=== PATIENT | male | born 1970 | race American Indian/Alaskan Native ===

== ENCOUNTER 2017-01-11 17:10 | Emergency (ER) | payer OTHER ==
[2017-01-11 19:02] LABS: Hematocrit 40.4 % (35.5-45.6); Hemoglobin 13.7 gm/dl (11.8-15.2); Mean Corpuscular HGB Conc 34 % (32-34); Mean Corpuscular Hemoglobin 28 pg (28-32); Mean Corpuscular Volume 84 fl (84-94); Platelet Count 220 K/mm3 (140-440); Red Blood Count 4.81 M/mm3 (3.65-5.03); Red Cell Distribution Width 12.9 % (13.2-15.2); White Blood Count 3.9 K/mm3 (4.5-11.0)
[2017-01-11 19:03] LABS: Anion Gap 18 mmol/L; B-Hydroxybutyrate 5.8 mg/dL (0.2-2.8); BUN/Creatinine Ratio 18.88; Blood Urea Nitrogen 17 mg/dL (9-20); Calcium 9.3 mg/dL (8.4-10.2); Carbon Dioxide 28 mmol/L (22-30); Chloride 91.2 mmol/L (98-107); Glucose 402 mg/dL (75-100); Potassium 4.5 mmol/L (3.6-5.0); Sodium 133 mmol/L (137-145)
[2017-01-11] MEDS ORDERED: NACL 0.9% 1000 ML 1,000 ML IV ONE (19:40)
[2017-01-11 20:12] LABS: Bilirubin,Urine NEG (Negative); Blood,Urine SM (Negative); Ketones,Urine NEG (Negative); Leukocyte Esterase,Urine NEG (Negative); Nitrite,Urine NEG (Negative); Protein,Urine <15 mg/dL mg/dL (Negative); Urobilinogen,Urine < 2.0 mg/dL (<2.0)
--- NOTE | 2017-01-11 20:36 | Emergency Department Report ---
HPI - General Chief Complaint: Hyperglycemia Time Seen by Provider: 01/11/17 19:40 - HPI HPI: This is a 46-year-old Afro-[place] male who presents to the emergency department with complaint of uncontrolled blood sugar. Patient says he is taking his Humalog and Lantus as prescribed. He is on a sliding scale Humalog and 35 units of Lantus at night. He has been having some increased thirst and increased urination. He denies any chest pain, abdominal pain, nausea, vomiting , headache or blurred vision. He also has a history of hypertension and arthritis. He does not currently have a primary care doctor. No recent travel or sick contacts at home. He denies missing any doses of his medications. ED Past Medical Hx - Past Medical History Previous Medical History?: Yes Hx Hypertension: Yes Hx Diabetes: Yes Hx Arthritis: Yes - Surgical History Past Surgical History?: No - Social History Smoking Status: Current Every Day Smoker Substance Use Type: None ED Review of Systems ROS: Stated complaint: HIGH BLOOD SUGAR Other details as noted in HPI Comment: All other systems reviewed and negative Constitutional: denies: chills, fever Eyes: denies: eye pain, eye discharge, vision change ENT: denies: ear pain, throat pain Respiratory: denies: cough, shortness of breath, wheezing Cardiovascular: denies: chest pain, palpitations Endocrine: increased thirst, increased urine Gastrointestinal: denies: abdominal pain, nausea, diarrhea Genitourinary: frequency. denies: urgency, dysuria Musculoskeletal: denies: back pain, joint swelling, arthralgia Skin: denies: rash, lesions Neurological: denies: headache, weakness, paresthesias Physical Exam - Physical Exam Vital Signs: Vital Signs 01/11/17 18:04 Temperature 98.6 F Pulse Rate 54 L Respiratory 18 Rate Blood Pressure 153/103 O2 Sat by Pulse 100 Oximetry Physical Exam: GENERAL: The patient is well-developed well-nourished. HEENT: Normocephalic. Atraumatic. Extraocular motions are intact. Patient has moist mucous membranes. Pupils equal reactive to light bilaterally. NECK: Supple. Trachea is midline. CHEST/LUNGS: Clear to auscultation. There is no respiratory distress noted. HEART/CARDIOVASCULAR: Regular. There is no tachycardia. There is no gallop rub or murmur. ABDOMEN: Abdomen is soft, nontender. Patient has normal bowel sounds. There is no abdominal distention. SKIN: There is no rash. There is no edema. There is no diaphoresis. NEURO: The patient is awake, alert, and oriented. The patient is cooperative. The patient has no focal neurologic deficits. The patient has normal speech. MUSCULOSKELETAL: There is no tenderness or deformity. There is no limitation range of motion. There is no evidence of acute injury. ED Course Vital Signs 01/11/17 18:04 Temperature 98.6 F Pulse Rate 54 L Respiratory 18 Rate Blood Pressure 153/103 O2 Sat by Pulse 100 Oximetry ED Medical Decision Making - Lab Data Result diagrams: 01/11/17 18:30 01/11/17 18:30 - Medical Decision Making 46-year-old insulin-dependent diabetic presents with elevated blood sugar. Blood sugar is 400. There is no acidosis and only 5 ketones in the urine. Patient does not appear to be in any distress. He was given 10 units of IV insulin and 1 L of IV fluid resuscitation and blood sugars come down to 210. There is no significant anion gap elevation. He does not appear to be in diabetic ketoacidosis or HHNK. He'll be discharged home with multiple referrals for primary care. He will continue to take his insulin, keep a blood sugar log and will return to the ER with any worsening of his symptoms or any acute distress. Patient will be given some amoxicillin as he is convinced that he has sinusitis and that is bacterial. - Differential Diagnosis DKA, HHNK, hyperglycemia Critical Care Time: No Critical care attestation.: If time is entered above; I have spent that time in minutes in the direct care of this critically ill patient, excluding procedure time. ED Disposition Clinical Impression: Hyperglycemia Hypertension Qualifiers: Hypertension type: essential hypertension Qualified Code(s): I10 - Essential ( primary) hypertension Disposition: DISCHARGED TO HOME OR SELFCARE Is pt being admited?: No Does the pt Need Aspirin: No Condition: Good Instructions: Hypertension (ED), Diabetic Hyperglycemia (ED) Additional Instructions: Please follow-up with a primary care doctor in the next few days. Continue using your insulin and keep a blood sugar log. Return to the emergency department with any uncontrolled blood sugar or any acute distress. Try to stay away from foods and drinks that are high in carbohydrates, starches and sugar. Referrals: PRIMARY CARE, [Primary Care Provider] - 3-5 Days DICRISTINA,JCARLOS, MD [Staff Physician] - 3-5 Days BEATRIS PAYNE MD [Staff Physician] - 3-5 Days [facility] [Outside] - 3-5 Days [facility] [Outside] - 3-5 Days [facility] [Outside] - 3-5 Days [facility] [Outside] - 3-5 Days Time of Disposition: 21:37
[2017-01-11 21:04] LABS: Anisocytosis Few; Basophils % (Manual) 0 % (0.0-1.8); Blastocytes % (Manual) 0 %; Diff Status Complete
[2017-01-11 22:18] VITALS: BP 146/92
== END 2017-01-11 21:45 | disposition home or self-care (01) ==
LOC: ED 17:10
DX: E11.65 Type 2 diabetes mellitus with hyperglycemia (principal); I10 Essential (primary) hypertension; E11.9 Type 2 diabetes mellitus without complications; F17.200 Nicotine dependence, unspecified, uncomplicated
CPT/HCPCS: 36415; 80048; 81001; 82010; 82805; 82962; 85007; 85025; 96361; 96374; 99284; J7030; J1815

== ENCOUNTER 2017-04-16 09:44 | Emergency (ER) | payer SELFPAY ==
[2017-04-16 10:46] LABS: Bilirubin,Urine NEG (Negative); Blood,Urine MOD (Negative); Ketones,Urine NEG (Negative); Leukocyte Esterase,Urine NEG (Negative); Mucus,Urine FEW /HPF; Nitrite,Urine NEG (Negative); Protein,Urine <15 mg/dL mg/dL (Negative); Urobilinogen,Urine < 2.0 mg/dL (<2.0); WBC,Urine < 1.0 /HPF (0.0-6.0)
[2017-04-16 11:01] LABS: Basophils % (Auto) 0.8 % (0.0-1.8); Hematocrit 42.4 % (35.5-45.6); Hemoglobin 14.3 gm/dl (11.8-15.2); Mean Corpuscular HGB Conc 34 % (32-34); Mean Corpuscular Hemoglobin 28 pg (28-32); Mean Corpuscular Volume 84 fl (84-94); Platelet Count 168 K/mm3 (140-440); Red Blood Count 5.05 M/mm3 (3.65-5.03); Red Cell Distribution Width 13.6 % (13.2-15.2); White Blood Count 5.4 K/mm3 (4.5-11.0)
[2017-04-16 11:22] LABS: Alanine Aminotransferase 16 units/L (7-56); Albumin 3.3 g/dL (3.9-5); Albumin/Globulin Ratio 1.3 %; Alkaline Phosphatase 100 units/L (35-129); Anion Gap 16 mmol/L; Blood Urea Nitrogen 10 mg/dL (9-20); Calcium 8.4 mg/dL (8.4-10.2); Carbon Dioxide 26 mmol/L (22-30); Chloride 95.7 mmol/L (98-107); Glucose 330 mg/dL (75-100); Lipase 36 units/L (13-60); Potassium 3.7 mmol/L (3.6-5.0); Sodium 134 mmol/L (137-145); Total Protein 5.9 g/dL (6.3-8.2)
[2017-04-16] MEDS ORDERED: NORCO 5/325 PO ONE (11:29)
[2017-04-16] MEDS ORDERED: ZOFRAN ODT PO ONE (11:30)
[2017-04-16] MEDS ORDERED: NACL 0.9% 1000 ML 1,000 ML IV ONE (11:45)
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
[2017-04-16 13:38] VITALS: BP 158/96
== END 2017-04-16 13:38 | disposition home or self-care (01) ==
LOC: ED 09:44
DX: R10.30 Lower abdominal pain, unspecified (principal); I10 Essential (primary) hypertension; E11.9 Type 2 diabetes mellitus without complications; F17.200 Nicotine dependence, unspecified, uncomplicated
CPT/HCPCS: 36415; 74176; 80053; 81001; 82550; 82962; 83690; 85025; 96360; 99284; J7030; Q0162

== ENCOUNTER 2017-06-08 11:41 | Emergency (ER) | payer SELFPAY ==
[2017-06-08 12:51] LABS: Basophils % (Auto) 1.1 % (0.0-1.8); Eosinophils % (Auto) 2.6 % (0.0-4.3); Hematocrit 41.1 % (35.5-45.6); Hemoglobin 13.5 gm/dl (11.8-15.2); Mean Corpuscular HGB Conc 33 % (32-34); Mean Corpuscular Hemoglobin 29 pg (28-32); Mean Corpuscular Volume 87 fl (84-94); Platelet Count 219 K/mm3 (140-440); Red Blood Count 4.73 M/mm3 (3.65-5.03); White Blood Count 3.4 K/mm3 (4.5-11.0)
[2017-06-08 12:56] LABS: Anion Gap 21 mmol/L; BUN/Creatinine Ratio 16.66; Blood Urea Nitrogen 15 mg/dL (9-20); Carbon Dioxide 25 mmol/L (22-30); Chloride 88.7 mmol/L (98-107); Potassium 4.5 mmol/L (3.6-5.0); Sodium 130 mmol/L (137-145)
[2017-06-08 12:57] LABS: Glucose 660 mg/dL (75-100)
[2017-06-08 13:52] VITALS: BP 126/91
[2017-06-08 13:59] LABS: Bilirubin,Urine NEG (Negative); Blood,Urine SM (Negative); Ketones,Urine TR mg/dL (Negative); Leukocyte Esterase,Urine NEG (Negative); Mucus,Urine FEW /HPF; Nitrite,Urine NEG (Negative); Protein,Urine <15 mg/dL mg/dL (Negative); Urobilinogen,Urine < 2.0 mg/dL (<2.0); WBC,Urine < 1.0 /HPF (0.0-6.0)
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
--- NOTE | 2017-06-08 15:57 | XRay Report ---
Right elbow 2 views: History: Slip and fall. Findings: No bony or articular abnormality. No fracture or dislocation. No joint effusion. Impression: Essentially negative elbow.
--- NOTE | 2017-06-08 15:58 | XRay Report ---
Right hip 2 views: History: Injury, pain. Findings: Mild arthritic changes superior lateral aspect of hip joint. No definite evidence of acute fracture or dislocation. Impression: Findings as described.
--- NOTE | 2017-06-08 15:59 | XRay Report ---
Right knee 2 views: History: Slip and fall. Severe pain. Findings: No bony or articular abnormality. No fracture or dislocation no joint effusion. Unfused tibial tuberosity epiphysis. Impression: No evidence of acute fracture.
--- NOTE | 2017-06-08 16:00 | XRay Report ---
Lumbar spine 3 views: History: Slipped and fall, severe pain. Findings: Normal height of vertebral bodies and intervertebral disc are normal articular surfaces. No fracture. No paravertebral mass. Impression: No evidence of acute fracture.
--- NOTE | 2017-06-08 16:00 | XRay Report ---
Right shoulder 3 views: History: Slipped and fall. Findings: Normal a.c. joint. Normal glenohumeral joint. No fracture or dislocation. Impression: No evidence of acute fracture.
[2017-06-08] MEDS ORDERED: NACL 0.9% 1000 ML 1,000 ML IV ONE (16:19)
[2017-06-08] MEDS ORDERED: NORCO 10/325 PO ONE (16:58)
[2017-06-08] MEDS ORDERED: ROXICODONE PO ONE (17:07)
== END 2017-06-08 17:23 | disposition home or self-care (01) ==
LOC: ED 11:41
DX: E11.65 Type 2 diabetes mellitus with hyperglycemia (principal); M25.561 Pain in right knee; M25.511 Pain in right shoulder; I10 Essential (primary) hypertension; M19.90 Unspecified osteoarthritis, unspecified site; F12.10 Cannabis abuse, uncomplicated; F17.210 Nicotine dependence, cigarettes, uncomplicated; Z79.4 Long term (current) use of insulin
CPT/HCPCS: 36415; 72100; 73030; 73070; 73502; 73560; 80048; 81001; 82805; 82962; 85025; 93005; 93010; 96361; 96374; 99285; J7030; J1815

== ENCOUNTER 2017-08-28 14:41 | Emergency (ER) | payer SELFPAY ==
--- NOTE | 2017-08-28 16:01 | Emergency Department Report ---
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 He also having left-sided chest pain that feels like needles and pin without any radiation without any similar incident. This is 8 out of 10. Patient is reporting blurred vision and dizziness also. He said he has a history of high blood pressure and his doctor at taking him off his blood pressure medication. He said he hasn't had anything to eat in a couple days and he takes Lantus which she took this morning. He also takes another kind of insulin. Blood sugar in triage is 354 and his blood pressure is 159/103 with heart rate of 107. He denies any nausea or vomiting. Denies any syncope episode. Denies any head injury. He denies any fever or chills. - ROS Review of Systems: All systems are negative unless stated in HPI above - Exam Vital Signs: Vital Signs 08/28/17 15:18 Temperature 98 F Pulse Rate 107 H Respiratory 18 Rate Blood Pressure 159/103 O2 Sat by Pulse 100 Oximetry Physical Exam: Gen.: This is a 46-year-old male well-nourished well-developed nontoxic in appearance. CV: Tachycardic 107, regular rhythm. Mini neurological exam: She is alert and oriented 3, GCS of 15. No facial drooping and speech is clear. Eyes: The lateral pupils equal and reactive to light, EOM intact bilaterally, bilateral sclera/conjunctiva without any injection. MSE screening note: Focused history and physical exam performed. Due to findings the following was ordered:[facility] ED Medical Decision Making - Medical Decision Making MDM: Patient screened by provider in triage area. Appropriate protocol initiated and patient to be seen in main ED by ED Disposition for MSE Condition: Stable
[2017-08-28 16:31] LABS: Basophils % (Auto) 0.7 % (0.0-1.8); Eosinophils % (Auto) 0.9 % (0.0-4.3); Hematocrit 45.6 % (35.5-45.6); Hemoglobin 15.1 gm/dl (11.8-15.2); Mean Corpuscular HGB Conc 33 % (32-34); Mean Corpuscular Hemoglobin 29 pg (28-32); Mean Corpuscular Volume 86 fl (84-94); Platelet Count 238 K/mm3 (140-440); Red Cell Distribution Width 13.6 % (13.2-15.2); White Blood Count 4.6 K/mm3 (4.5-11.0)
[2017-08-28 16:48] LABS: Anion Gap 18 mmol/L; BUN/Creatinine Ratio 18; Blood Urea Nitrogen 11 mg/dL (9-20); Calcium 9.4 mg/dL (8.4-10.2); Carbon Dioxide 27 mmol/L (22-30); Chloride 92.9 mmol/L (98-107); Glucose 387 mg/dL (75-100); Potassium 4.4 mmol/L (3.6-5.0); Sodium 133 mmol/L (137-145)
--- NOTE | 2017-08-28 17:48 | Cat Scan Report ---
FINAL REPORT EXAM: CT HEAD/BRAIN WO CON HISTORY: Headache, blurred vision TECHNIQUE: CT head without contrast PRIORS: None. FINDINGS: No acute intra-axial or extra-axial hemorrhage is identified. There is no evidence of midline shift or mass effect. The ventricles and sulci are within normal limits. Hernandez-white matter differentiation is intact. No acute parenchymal abnormalities seen. Bony calvarium is grossly intact. There is marked opacification within visualized portion the maxillary sinuses. There mucosal thickening within multiple ethmoid air cells and within the frontal sinus. IMPRESSION: No acute intracranial abnormality identified. Pansinusitis which may be acute on chronic.
[2017-08-28 23:03] VITALS: BP 154/103
== END 2017-08-29 08:44 | disposition left against medical advice (07) ==
LOC: ED 14:41
DX: R51 Headache (principal); E11.65 Type 2 diabetes mellitus with hyperglycemia; R07.9 Chest pain, unspecified; R42 Dizziness and giddiness; Z53.21 Procedure and treatment not carried out due to patient leaving prior to being seen by health care provider
CPT/HCPCS: 36415; 70450; 80048; 82805; 82962; 84484; 85025; 93005; 93010

== ENCOUNTER 2018-12-23 20:06 | Inpatient (IN) | payer MEDICARE ==
[2018-12-23 21:20] LABS: BUN/Creatinine Ratio 14; Blood Urea Nitrogen 11 mg/dL (9-20); Calcium 9.2 mg/dL (8.4-10.2); Hemolysis Index 5
[2018-12-23 21:29] LABS: Basophils % (Auto) 1.1 % (0.0-1.8); Eosinophils # (Auto) 0.1 K/mm3 (0.0-0.4); Eosinophils % (Auto) 2.9 % (0.0-4.3); Hemoglobin 12.1 gm/dl (11.8-15.2); Lymphocytes # (Auto) 1.8 K/mm3 (1.2-5.4); Lymphocytes % (Auto) 45.4 % (13.4-35.0); Mean Corpuscular HGB Conc 34 % (32-34); Mean Corpuscular Volume 87 fl (84-94); Monocytes # (Auto) 0.5 K/mm3 (0.0-0.8); Monocytes % (Auto) 12.4 % (0.0-7.3); Platelet Count 307 K/mm3 (140-440); Red Blood Count 4.14 M/mm3 (3.65-5.03); Red Cell Distribution Width 14.3 % (13.2-15.2)
[2018-12-23] MEDS ORDERED: NACL 0.9% 1000 ML 1,000 ML IV ONE (22:33)
[2018-12-23] MEDS ORDERED: TORADOL IV ONE (22:33)
[2018-12-23] MEDS ORDERED: ZOFRAN IV ONE (22:33)
[2018-12-23] MEDS ORDERED: HumuLIN R IV ONE (22:33)
[2018-12-23 23:17] LABS: Bilirubin,Urine NEG (Negative); Blood,Urine SM (Negative); Color,Urine Straw (Yellow); Protein,Urine <15 mg/dL mg/dL (Negative); Urobilinogen,Urine < 2.0 mg/dL (<2.0); WBC,Urine < 1.0 /HPF (0.0-6.0)
--- NOTE | 2018-12-23 23:20 | XRay Report ---
FINAL REPORT PROCEDURE: Left foot. TECHNIQUE: Four views. HISTORY: Foot pain and ulcers. COMPARISON: No prior studies are available for comparison. FINDINGS: The bones appear intact without fracture or dislocation. There are no signs of osteomyelitis. The eugenie nt spaces appear normal. The soft tissues are unremarkable. IMPRESSION: No significant abnormality.
--- NOTE | 2018-12-23 23:27 | Emergency Department Report ---
ED General Adult HPI - General Chief complaint: Chest Pain Stated complaint: HIGH BLOOD GLUCOSE CHEST PAIN Time Seen by Provider: 12/23/18 22:09 Source: patient Mode of arrival: Ambulatory Limitations: No Limitations - History of Present Illness Initial comments: 48-year-old male with a past medical history of diabetes (on insulin), hypertension, and arthritis presents to Hospital complaining of uncontrolled glucose for the last 1 week, worsening left foot pain and swelling, and anterior chest pain since fall or Monday. Patient has been compliant with his Humalog sliding scale 3 times a day dose and Lantus 34 units daily at bedtime. Despite this he states that his glucose has been elevated over 500. He has been taking 8 units of his side scale dose for treatment. Patient has chronic left foot ulcerations in the past 1 week he has had worsening pain and swelling. Reports chills without fever. Denies cough, abdominal pain, nausea, vomiting, or diarrhea. He was seen at [facility] at all on Monday after his fall. He fell while going to the mailbox striking his chest on the ground. He continues to have pain that is reproducible on his right and left chest with palpation. Patient states he only had one dose of his Humalog this morning he did have not have any at this afternoon or evening medication - Related Data Previous Rx's Medication Instructions Recorded Last Taken Type Amoxicillin [Trimox CAP] 500 mg PO Q8H #21 capsule 01/11/17 Unknown Rx Insulin Glargine [Lantus] 35 units SQ QHS #1 vial 01/11/17 Unknown Rx Insulin Lispro [HumaLOG VIAL] 0 units SQ AC #1 vial 01/11/17 Unknown Rx HYDROcodone/APAP 5-325 [[place] 1 each PO Q6HR PRN #10 tablet 04/16/17 Unknown Rx 5/325] Ondansetron [Zofran Odt] 4 mg PO Q8H PRN #12 tab.rapdis 04/16/17 Unknown Rx Ketorolac [Toradol] 10 mg PO Q6H PRN #14 tablet 06/08/17 Unknown Rx Allergies Allergy/AdvReac Type Severity Reaction Status Date / Time No Known Allergies Allergy Unverified 01/11/17 18:04 ED Review of Systems ROS: Stated complaint: HIGH BLOOD GLUCOSE CHEST PAIN Other details as noted in HPI Comment: All other systems reviewed and negative ED Past Medical Hx - Past Medical History Hx Hypertension: Yes Hx Diabetes: Yes Hx Arthritis: Yes - Surgical History Additional Surgical History: Right hand - Social History Smoking Status: Current Every Day Smoker Substance Use Type: None - Medications Home Medications: Home Medications Medication Instructions Recorded Confirmed Last Taken Type Amoxicillin [Trimox CAP] 500 mg PO Q8H #21 capsule 01/11/17 Unknown Rx Insulin Glargine [Lantus] 35 units SQ QHS #1 vial 01/11/17 Unknown Rx Insulin Lispro [HumaLOG VIAL] 0 units SQ AC #1 vial 01/11/17 Unknown Rx HYDROcodone/APAP 5-325 [[place] 1 each PO Q6HR PRN #10 tablet 04/16/17 Unknown Rx 5/325] Ondansetron [Zofran Odt] 4 mg PO Q8H PRN #12 tab.rapdis 04/16/17 Unknown Rx Ketorolac [Toradol] 10 mg PO Q6H PRN #14 tablet 06/08/17 Unknown Rx ED Physical Exam - General Limitations: No Limitations - Other Other exam information: General: No limitations, patient is alert in no acute distress Head exam: Atraumatic, normocephalic Eyes exam: Normal appearance, pupils equal reactive to light, extraocular movem ents intact ENT: Moist mucous membrane Neck exam: Normal inspection, full range of motion, no meningismus nontender Respiratory exam: Clear to auscultation bilateral, no wheezes, rales, crackles Cardiovascular: Normal rate and rhythm, normal heart sounds. Anterior chest wall tenderness Abdomen: Soft, nondistended, and nontender, with normal bowel sounds, no rebound, or guarding Extremity: Full range of motion normal inspection no deformity Back: Normal Inspection, full range of motion, no tenderness Neurologic: Alert, oriented x3, cranial nerves intact, decrease and sensation to touch to bilateral feet. No motor deficit appreciated Psychiatric: normal affect, normal mood Skin: Also wishes to dorsum of foot and medial great toe. Some generalized swelling and warmth to the foot noted. ED Course Vital Signs 12/23/18 12/23/18 12/23/18 20:28 21:54 22:00 Temperature 98.7 F Pulse Rate 107 H 103 H 99 H Respiratory 20 15 Rate Blood Pressure 165/106 147/96 O2 Sat by Pulse 100 100 98 Oximetry 12/23/18 12/23/18 12/23/18 22:16 22:30 22:46 Temperature Pulse Rate 99 H 101 H 99 H Respiratory 19 12 16 Rate Blood Pressure 155/102 127/78 127/78 O2 Sat by Pulse 99 96 100 Oximetry 12/23/18 23:01 Temperature 98.0 F Pulse Rate Respiratory Rate Blood Pressure O2 Sat by Pulse Oximetry ED Medical Decision Making - Lab Data Result diagrams: 12/23/18 20:45 12/23/18 20:45 Lab Results 12/23/18 12/23/18 12/23/18 Range/Units 20:28 20:45 20:45 WBC 3.9 L (4.5-11.0) K/mm3 RBC 4.14 (3.65-5.03) M/mm3 Hgb 12.1 (11.8-15.2) gm/dl Hct 36.0 (35.5-45.6) % MCV 87 (84-94) fl MCH 29 (28-32) pg MCHC 34 (32-34) % RDW 14.3 (13.2-15.2) % Plt Count 307 (140-440) K/mm3 Lymph % (Auto) 45.4 H (13.4-35.0) % [place] % (Auto) 12.4 H (0.0-7.3) % Eos % (Auto) 2.9 (0.0-4.3) % Baso % (Auto) 1.1 (0.0-1.8) % Lymph # 1.8 (1.2-5.4) K/mm3 [place] # 0.5 (0.0-0.8) K/mm3 Eos # 0.1 (0.0-0.4) K/mm3 Baso # 0.0 (0.0-0.1) K/mm3 Seg Neutrophils % 38.2 L (40.0-70.0) % Seg Neutrophils # 1.5 L (1.8-7.7) K/mm3 ESR (0-20) mm/Hr VBG pH (7.320-7.420) Sodium 129 L (137-145) mmol/L Potassium 5.1 H (3.6-5.0) mmol/L Chloride 92.3 L (98-107) mmol/L Carbon Dioxide 27 (22-30) mmol/L Anion Gap 15 mmol/L BUN 11 (9-20) mg/dL Creatinine 0.8 (0.8-1.5) mg/dL Estimated GFR > 60 ml/min BUN/Creatinine Ratio 14 % Glucose 705 H* (75-100) mg/dL POC Glucose > 500 H (70-105) Calcium 9.2 (8.4-10.2) mg/dL Troponin T (0.00-0.029) ng/mL Urine Color (Yellow) Urine Turbidity (Clear) Urine pH (5.0-7.0) Ur Specific [place] (1.003-1.030) Urine Protein (Negative) mg/dL Urine Glucose (UA) (Negative) mg/dL Urine Ketones (Negative) mg/dL Urine Blood (Negative) Urine Nitrite (Negative) Urine Bilirubin (Negative) Urine Urobilinogen (<2.0) mg/dL Ur Leukocyte Esterase (Negative) Urine WBC (Auto) (0.0-6.0) /HPF Urine RBC (Auto) (0.0-6.0) /HPF U Epithel Cells (Auto) (0-13.0) /HPF 12/23/18 12/23/18 12/23/18 Range/Units 20:45 20:51 23:00 WBC (4.5-11.0) K/mm3 RBC (3.65-5.03) M/mm3 Hgb (11.8-15.2) gm/dl Hct (35.5-45.6) % MCV (84-94) fl MCH (28-32) pg MCHC (32-34) % RDW (13.2-15.2) % Plt Count (140-440) K/mm3 Lymph % (Auto) (13.4-35.0) % [place] % (Auto) (0.0-7.3) % Eos % (Auto) (0.0-4.3) % Baso % (Auto) (0.0-1.8) % Lymph # (1.2-5.4) K/mm3 [place] # (0.0-0.8) K/mm3 Eos # (0.0-0.4) K/mm3 Baso # (0.0-0.1) K/mm3 Seg Neutrophils % (40.0-70.0) % Seg Neutrophils # (1.8-7.7) K/mm3 ESR (0-20) mm/Hr VBG pH 7.388 (7.320-7.420) Sodium (137-145) mmol/L Potassium (3.6-5.0) mmol/L Chloride (98-107) mmol/L Carbon Dioxide (22-30) mmol/L Anion Gap mmol/L BUN (9-20) mg/dL Creatinine (0.8-1.5) mg/dL Estimated GFR ml/min BUN/Creatinine Ratio % Glucose (75-100) mg/dL POC Glucose (70-105) Calcium (8.4-10.2) mg/dL Troponin T < 0.010 (0.00-0.029) ng/mL Urine Color Straw (Yellow) Urine Turbidity Clear (Clear) Urine pH 6.0 (5.0-7.0) Ur Specific [place] 1.022 (1.003-1.030) Urine Protein <15 mg/dl (Negative) mg/dL Urine Glucose (UA) >=500 (Negative) mg/dL Urine Ketones Neg (Negative) mg/dL Urine Blood Sm (Negative) Urine Nitrite Neg (Negative) Urine Bilirubin Neg (Negative) Urine Urobilinogen < 2.0 (<2.0) mg/dL Ur Leukocyte Esterase Neg (Negative) Urine WBC (Auto) < 1.0 (0.0-6.0) /HPF Urine RBC (Auto) 1.0 (0.0-6.0) /HPF U Epithel Cells (Auto) < 1.0 (0-13.0) /HPF 12/23/18 12/23/18 Range/Units 23:28 Unknown WBC (4.5-11.0) K/mm3 RBC (3.65-5.03) M/mm3 Hgb (11.8-15.2) gm/dl Hct (35.5-45.6) % MCV (84-94) fl MCH (28-32) pg MCHC (32-34) % RDW (13.2-15.2) % Plt Count (140-440) K/mm3 Lymph % (Auto) (13.4-35.0) % [place] % (Auto) (0.0-7.3) % Eos % (Auto) (0.0-4.3) % Baso % (Auto) (0.0-1.8) % Lymph # (1.2-5.4) K/mm3 [place] # (0.0-0.8) K/mm3 Eos # (0.0-0.4) K/mm3 Baso # (0.0-0.1) K/mm3 Seg Neutrophils % (40.0-70.0) % Seg Neutrophils # (1.8-7.7) K/mm3 ESR 57 (0-20) mm/Hr VBG pH (7.320-7.420) Sodium (137-145) mmol/L Potassium (3.6-5.0) mmol/L Chloride (98-107) mmol/L Carbon Dioxide (22-30) mmol/L Anion Gap mmol/L BUN (9-20) mg/dL Creatinine (0.8-1.5) mg/dL Estimated GFR ml/min BUN/Creatinine Ratio % Glucose (75-100) mg/dL POC Glucose > 500 H (70-105) Calcium (8.4-10.2) mg/dL Troponin T (0.00-0.029) ng/mL Urine Color (Yellow) Urine Turbidity (Clear) Urine pH (5.0-7.0) Ur Specific [place] (1.003-1.030) Urine Protein (Negative) mg/dL Urine Glucose (UA) (Negative) mg/dL Urine Ketones (Negative) mg/dL Urine Blood (Negative) Urine Nitrite (Negative) Urine Bilirubin (Negative) Urine Urobilinogen (<2.0) mg/dL Ur Leukocyte Esterase (Negative) Urine WBC (Auto) (0.0-6.0) /HPF Urine RBC (Auto) (0.0-6.0) /HPF U Epithel Cells (Auto) (0-13.0) /HPF - EKG Data -: EKG Interpreted by Vt EKG shows normal: sinus rhythm, axis (QRS 70), QRS complexes (QRS duration), ST-T waves (no ST elevation or T-wave inversion) Rate: tachycardia (109) - EKG Data When compared to previous EKG there are: no significant change - Radiology Data Radiology results: report reviewed Chest x-ray: No acute findings left foot x-ray: No acute findings - Medical Decision Making Patient has a glucose level in the 700s. No signs of DKA. Normal saline and insulin bolus initiated. Patient also sided pain medications for her anterior chest wall pain and foot pain. Troponin negative and low suspicion for cardiac pain. Vancomycin ordered for possible foot infection given the history of uncontrolled sugars 1 week and worsening foot pain and swelling. Hospitalist and plan for admission - Differential Diagnosis chest contusion, fracture, CT, chronic ulcer, cellulitis, DKA Critical Care Time: No Critical care attestation.: If time is entered above; I have spent that time in minutes in the direct care of this critically ill patient, excluding procedure time. ED Disposition Clinical Impression: Uncontrolled diabetes mellitus, Diabetic foot infection, Chest wall pain Disposition: OP ADMIT IP TO THIS HOSP Is pt being admited?: Yes Condition: Stable Time of Disposition: 23:27 (Dr Quiñones/hosp)
[2018-12-24] MEDS ORDERED: TYLENOL PO PRN (00:09)
[2018-12-24] MEDS ORDERED: SODIUM CHLORIDE FLUSH SYRINGE 10 ML IV PRN (00:09)
[2018-12-24] MEDS ORDERED: ZOFRAN IV PRN (00:09)
--- NOTE | 2018-12-24 00:25 | XRay Report ---
FINAL REPORT EXAM: XR CHEST ROUTINE 2V HISTORY: cp s/p fall TECHNIQUE: 2 views of the chest. PRIORS: None. FINDINGS: The cardiomediastinal silhouette appears normal. The lungs are clear. The bones and soft tissues are unremarkable. IMPRESSION: No evidence of acute cardiopulmonary disease
[2018-12-24] MEDS ORDERED: D50W (25GM) Syringe IV PRN (02:13)
[2018-12-24] MEDS ORDERED: VANCOMYCIN 1,500 MG in NACL 0.9% 500 ML 500 ML IV ONE (02:30)
[2018-12-24] MEDS ORDERED: VANCOMYCIN PHARMACY TO DOSE IV SCH (03:00)
--- NOTE | 2018-12-24 04:07 | History and Physical Report ---
History of Present Illness Date of examination: 12/24/18 Date of admission: 12/24/18 00:10 Chief complaint: s/p fall with bilateral leg wound History of present illness: Patient is a 48-year-old male with past medical history of insulin-dependent diabetes, osteoarthritis who presents today ER with complaints of chest pain, knee pain and multiple abrasion, and 6-7 days, elevated blood glucose. Patient states that he fell accidentally in front of his house on Monday, he sustained multiple injuries to his feet, he went to an ER to be evaluated but was provided with very little care. Patient states that the wounds in his feet was getting worse, he has a history of insulin-dependent diabetes and his blood glucose was greater than 500 at home. He decided to come to the ER for evaluation of the elevated blood glucose and he is feet wound. Patient denies any fever, denies any chills, denies any dizziness, denies lightheadedness, denies nausea, denies vomiting. Patient was evaluated in the ER and started on IV vancomycin and insulin per sliding scale and admitted for further evaluation and treatment. Past History Past Medical History: arthritis, diabetes, hypertension Past Surgical History: No surgical history Social history: no significant social history Family history: no significant family history Medications and Allergies Allergies Allergy/AdvReac Type Severity Reaction Status Date / Time No Known Allergies Allergy Unverified 01/11/17 18:04 Home Medications Medication Instructions Recorded Confirmed Last Taken Type Hydralazine HCl 50 mg PO TID #90 tablet 12/28/18 Unknown Rx Insulin Glargine,Hum.rec.anlog 40 units SQ QHS #1 vial 12/28/18 Unknown Rx [Lantus] Nicotine [Habitrol] 14 mg TD DAILY #30 patch 12/28/18 Unknown Rx amLODIPine [Norvasc] 10 mg PO QDAY #30 tablet 12/28/18 Unknown Rx traMADol [Ultram 50 MG tab] 50 mg PO Q6HR PRN #12 tablet 12/28/18 Unknown Rx Active Meds: Active Medications Acetaminophen (Tylenol) 650 mg PO Q4H PRN PRN Reason: Pain MILD(1-3)/Fever >100.5/ETIENNE Dextrose (D50w (25gm) Syringe) 50 ml IV PRN PRN PRN Reason: Hypoglycemia Sodium Chloride (Nacl 0.9% 1000 Ml) 1,000 mls @ 100 mls/hr IV DIRECT JULIO C Vancomycin HCl (Vancomycin/Ns 1 Gm/250 Ml) 1 gm in 250 mls @ 250 mls/hr IV Q12H JULIO C Vancomycin HCl 1,500 mg/ (Sodium Chloride) 530 mls @ 333.333 mls/hr IV ONCE ONE Stop: 12/24/18 04:05 Insulin Human Regular (Humulin R) 0 units SUB-Q AC JULIO C; Protocol Insulin Human Regular (Humulin R) 0 units SUB-Q QHS JULIO C; Protocol Ondansetron HCl (Zofran) 4 mg IV Q8H PRN PRN Reason: Nausea And Vomiting Oxycodone/Acetaminophen (Percocet 5/325) 1 tab PO Q6H PRN PRN Reason: Pain, Moderate (4-6) Sodium Chloride (Sodium Chloride Flush Syringe 10 Ml) 10 ml IV BID JULIO C Sodium Chloride (Sodium Chloride Flush Syringe 10 Ml) 10 ml IV PRN PRN PRN Reason: LINE FLUSH Review of Systems Integumentary: sores, wounds, lesions, dryness, other (abraision) Exam - Constitutional Vitals: Temp Pulse Resp BP Pulse Ox 98.0 F 99 H 16 127/78 100 12/23/18 23:01 12/23/18 22:46 12/23/18 22:46 12/23/18 22:46 12/23/18 22:46 General appearance: Present: no acute distress - EENT Eyes: Present: PERRL ENT: hearing intact - Neck Neck: Present: normal ROM - Respiratory Respiratory effort: normal Respiratory: bilateral: CTA - Cardiovascular Heart rate: 107 Rhythm: regular - Extremities Extremities: no ischemia Extremity abnormal: edema, ulceration, erythema Peripheral Pulses: within normal limits - Abdominal General gastrointestinal: Present: non-tender, non-distended Male genitourinary: Present: deferred - Rectal Rectal Exam: deferred - Integumentary Integumentary: Present: warm, dry - Musculoskeletal Musculoskeletal: strength equal bilaterally - Psychiatric Psychiatric: appropriate mood/affect - Neurologic Neurologic: moves all extremities Results - Labs CBC & Chem 7: 12/27/18 10:28 12/25/18 11:10 Labs: Laboratory Last Values WBC 3.9 K/mm3 (4.5-11.0) L 12/23/18 20:45 RBC 4.14 M/mm3 (3.65-5.03) 12/23/18 20:45 Hgb 12.1 gm/dl (11.8-15.2) 12/23/18 20:45 Hct 36.0 % (35.5-45.6) 12/23/18 20:45 MCV 87 fl (84-94) 12/23/18 20:45 MCH 29 pg (28-32) 12/23/18 20:45 MCHC 34 % (32-34) 12/23/18 20:45 RDW 14.3 % (13.2-15.2) 12/23/18 20:45 Plt Count 307 K/mm3 (140-440) 12/23/18 20:45 Lymph % (Auto) 45.4 % (13.4-35.0) H 12/23/18 20:45 [place] % (Auto) 12.4 % (0.0-7.3) H 12/23/18 20:45 Eos % (Auto) 2.9 % (0.0-4.3) 12/23/18 20:45 Baso % (Auto) 1.1 % (0.0-1.8) 12/23/18 20:45 Lymph # 1.8 K/mm3 (1.2-5.4) 12/23/18 20:45 [place] # 0.5 K/mm3 (0.0-0.8) 12/23/18 20:45 Eos # 0.1 K/mm3 (0.0-0.4) 12/23/18 20:45 Baso # 0.0 K/mm3 (0.0-0.1) 12/23/18 20:45 Seg Neutrophils % 38.2 % (40.0-70.0) L 12/23/18 20:45 Seg Neutrophils # 1.5 K/mm3 (1.8-7.7) L 12/23/18 20:45 ESR 57 mm/Hr (0-20) 12/23/18 Unknown VBG pH 7.388 (7.320-7.420) 12/23/18 20:45 Sodium 129 mmol/L (137-145) L 12/23/18 20:45 Potassium 5.1 mmol/L (3.6-5.0) H 12/23/18 20:45 Chloride 92.3 mmol/L (98-107) L 12/23/18 20:45 Carbon Dioxide 27 mmol/L (22-30) 12/23/18 20:45 Anion Gap 15 mmol/L 12/23/18 20:45 BUN 11 mg/dL (9-20) 12/23/18 20:45 Creatinine 0.8 mg/dL (0.8-1.5) 12/23/18 20:45 Estimated GFR > 60 ml/min 12/23/18 20:45 BUN/Creatinine Ratio 14 % 12/23/18 20:45 Glucose 705 mg/dL (75-100) H* 12/23/18 20:45 POC Glucose 251 (70-105) H 12/24/18 01:56 Calcium 9.2 mg/dL (8.4-10.2) 12/23/18 20:45 Troponin T < 0.010 ng/mL (0.00-0.029) 12/23/18 20:51 Urine Color Straw (Yellow) 12/23/18 23:00 Urine Turbidity Clear (Clear) 12/23/18 23:00 Urine pH 6.0 (5.0-7.0) 12/23/18 23:00 Ur Specific [place] 1.022 (1.003-1.030) 12/23/18 23:00 Urine Protein <15 mg/dl mg/dL (Negative) 12/23/18 23:00 Urine Glucose (UA) >=500 mg/dL (Negative) 12/23/18 23:00 Urine Ketones Neg mg/dL (Negative) 12/23/18 23:00 Urine Blood Sm (Negative) 12/23/18 23:00 Urine Nitrite Neg (Negative) 12/23/18 23:00 Urine Bilirubin Neg (Negative) 12/23/18 23:00 Urine Urobilinogen < 2.0 mg/dL (<2.0) 12/23/18 23:00 Ur Leukocyte Esterase Neg (Negative) 12/23/18 23:00 Urine WBC (Auto) < 1.0 /HPF (0.0-6.0) 12/23/18 23:00 Urine RBC (Auto) 1.0 /HPF (0.0-6.0) 12/23/18 23:00 U Epithel Cells (Auto) < 1.0 /HPF (0-13.0) 12/23/18 23:00 Assessment and Plan Assessment and plan: 1. Hyperglycemia 2. History of insulin depending diabetes 3. Status post fall with leg injury 4. Hypertension Plan: Admitted to remote telemetry for hyperglycemia and leg wounds Continue Accu-Chek before meals and at bedtime with sliding scale IV fluids for hydration IV Vanco for leg wounds Consult wound care for evaluation Resume home meds Percocet 1 tab by mouth when necessary for pain DVT prophylaxis with Lovenox Further plan per hospital course Plan discussed with patient voiced understanding Patient's condition and plan of care discussed with Dr. Quiñones Advance Directives: Yes VTE prophylaxis?: Chemical Plan of care discussed with patient/family: Yes
[2018-12-24] MEDS ORDERED: PERCOCET 5/325 ONE (04:21)
[2018-12-24] MEDS: PERCOCET 5/325 PO PRN ×2 (05:00→15:43)
[2018-12-24] MEDS: HumuLIN R SUB-Q SCH ×4 (07:02→22:14)
[2018-12-24 07:20] LABS: BUN/Creatinine Ratio 11; Blood Urea Nitrogen 13 mg/dL (9-20); Calcium 8.9 mg/dL (8.4-10.2); Hemolysis Index 9
[2018-12-24] MEDS: SODIUM CHLORIDE FLUSH SYRINGE 10 ML IV SCH ×2 (09:08→21:29)
[2018-12-24] MEDS: LOVENOX SUB-Q SCH (09:11)
[2018-12-24] MEDS: NORCO 5/325 PO PRN ×2 (09:11→21:24)
--- NOTE | 2018-12-24 09:43 | Event Note ---
Date: 12/24/18 Patient seen and examined, chart reviewed. This is a follow-up from an admission earlier this morning. We will continue the plan as outlined in H&P. Total visit time equals 25 minutes with greater than 50% spent with coordination of care and counseling.
[2018-12-24] MEDS ORDERED: NACL 0.9% IV SCH (10:00)
[2018-12-24] MEDS: VANCOMYCIN/NS 1 GM/250 ML 1 GM/250 ML BAG IV SCH (15:44)
[2018-12-24] MEDS: NACL 0.9% 1000 ML 1,000 ML IV SCH (21:34)
[2018-12-24] MEDS ORDERED: LANTUS SUB-Q SCH (22:00)
[2018-12-24] MEDS: LANTUS SUB-Q SCH (22:15)
[2018-12-25] MEDS: PERCOCET 5/325 PO PRN ×3 (02:51→21:39)
[2018-12-25] MEDS: NACL 0.9% 1000 ML 1,000 ML IV SCH ×2 (02:52→14:41)
[2018-12-25] MEDS: VANCOMYCIN/NS 1 GM/250 ML 1 GM/250 ML BAG IV SCH ×2 (04:02→18:36)
[2018-12-25] MEDS: LOVENOX SUB-Q SCH (10:37)
[2018-12-25] MEDS: HumuLIN R SUB-Q SCH ×4 (10:38→22:38)
[2018-12-25] MEDS: SODIUM CHLORIDE FLUSH SYRINGE 10 ML IV SCH ×2 (10:40→22:37)
[2018-12-25] MEDS ORDERED: APRESOLINE IV PRN (11:00)
[2018-12-25] MEDS ORDERED: NORVASC PO SCH (11:00)
[2018-12-25 11:41] LABS: Hemoglobin 11.8 gm/dl (11.8-15.2); Mean Corpuscular HGB Conc 33 % (32-34); Mean Corpuscular Volume 86 fl (84-94); Platelet Count 312 K/mm3 (140-440); Red Blood Count 4.19 M/mm3 (3.65-5.03); Red Cell Distribution Width 14.2 % (13.2-15.2)
[2018-12-25 11:45] LABS: BUN/Creatinine Ratio 15; Blood Urea Nitrogen 9 mg/dL (9-20); Calcium 8.5 mg/dL (8.4-10.2); Hemolysis Index 7
[2018-12-25] MEDS: NORCO 5/325 PO PRN (14:42)
--- NOTE | 2018-12-25 16:17 | Progress Note ---
History Interval history: Fall at home. PT to evaluate Diabetes mellitus type 2, uncontrolled Increase dosing, start iv fluids Multiple abrasions on legs wound care nurse Hypertensive urgency. Start Amlodipine, Hydralazine iv prn. Hold Lisinopril because of hyperkalemia Hyperkalemia, Resolved Depression. Consult Psych Hospitalist Physical - Physical exam Narrative exam: GEN: Not in acute distress, lying in bed HEENT: Normocephalic, atraumatic, Neck: supple, No JVD Lungs: Clear to auscultation bilaterally, no wheeze Heart:S1 and S2 regular, no murmurs, rubs or gallop, Abd:soft, non tender, non distended, normal bowel sounds Ext: Multiple abrasions lower ext from fall, swelling both feet, no cyanosis Neuro: Awake,alert, oriented x 3, No focal signs Psych:Depressed - Constitutional Vitals: Temp Pulse Resp BP Pulse Ox 97.8 F 98 H 18 181/124 100 12/25/18 11:43 12/25/18 11:43 12/25/18 11:43 12/25/18 11:43 12/25/18 11:43 General appearance: Present: no acute distress Results - Labs CBC & Chem 7: 12/25/18 11:10 12/25/18 11:10 Labs: Laboratory Last Values WBC 5.0 K/mm3 (4.5-11.0) 12/25/18 11:10 RBC 4.19 M/mm3 (3.65-5.03) 12/25/18 11:10 Hgb 11.8 gm/dl (11.8-15.2) 12/25/18 11:10 Hct 36.0 % (35.5-45.6) 12/25/18 11:10 MCV 86 fl (84-94) 12/25/18 11:10 MCH 28 pg (28-32) 12/25/18 11:10 MCHC 33 % (32-34) 12/25/18 11:10 RDW 14.2 % (13.2-15.2) 12/25/18 11:10 Plt Count 312 K/mm3 (140-440) 12/25/18 11:10 Lymph % (Auto) 45.4 % (13.4-35.0) H 12/23/18 20:45 [place] % (Auto) 12.4 % (0.0-7.3) H 12/23/18 20:45 Eos % (Auto) 2.9 % (0.0-4.3) 12/23/18 20:45 Baso % (Auto) 1.1 % (0.0-1.8) 12/23/18 20:45 Lymph # 1.8 K/mm3 (1.2-5.4) 12/23/18 20:45 [place] # 0.5 K/mm3 (0.0-0.8) 12/23/18 20:45 Eos # 0.1 K/mm3 (0.0-0.4) 12/23/18 20:45 Baso # 0.0 K/mm3 (0.0-0.1) 12/23/18 20:45 Seg Neutrophils % 38.2 % (40.0-70.0) L 12/23/18 20:45 Seg Neutrophils # 1.5 K/mm3 (1.8-7.7) L 12/23/18 20:45 ESR 57 mm/Hr (0-20) 12/23/18 Unknown VBG pH 7.388 (7.320-7.420) 12/23/18 20:45 Sodium 136 mmol/L (137-145) L 12/25/18 11:10 Potassium 4.4 mmol/L (3.6-5.0) 12/25/18 11:10 Chloride 99.0 mmol/L (98-107) 12/25/18 11:10 Carbon Dioxide 27 mmol/L (22-30) 12/25/18 11:10 Anion Gap 14 mmol/L 12/25/18 11:10 BUN 9 mg/dL (9-20) 12/25/18 11:10 Creatinine 0.6 mg/dL (0.8-1.5) L 12/25/18 11:10 Estimated GFR > 60 ml/min 12/25/18 11:10 BUN/Creatinine Ratio 15 % 12/25/18 11:10 Glucose 215 mg/dL (75-100) H 12/25/18 11:10 POC Glucose 225 (70-105) H 12/25/18 11:47 Calcium 8.5 mg/dL (8.4-10.2) 12/25/18 11:10 Troponin T < 0.010 ng/mL (0.00-0.029) 12/23/18 20:51 Urine Color Straw (Yellow) 12/23/18 23:00 Urine Turbidity Clear (Clear) 12/23/18 23:00 Urine pH 6.0 (5.0-7.0) 12/23/18 23:00 Ur Specific [place] 1.022 (1.003-1.030) 12/23/18 23:00 Urine Protein <15 mg/dl mg/dL (Negative) 12/23/18 23:00 Urine Glucose (UA) >=500 mg/dL (Negative) 12/23/18 23:00 Urine Ketones Neg mg/dL (Negative) 12/23/18 23:00 Urine Blood Sm (Negative) 12/23/18 23:00 Urine Nitrite Neg (Negative) 12/23/18 23:00 Urine Bilirubin Neg (Negative) 12/23/18 23:00 Urine Urobilinogen < 2.0 mg/dL (<2.0) 12/23/18 23:00 Ur Leukocyte Esterase Neg (Negative) 12/23/18 23:00 Urine WBC (Auto) < 1.0 /HPF (0.0-6.0) 12/23/18 23:00 Urine RBC (Auto) 1.0 /HPF (0.0-6.0) 12/23/18 23:00 U Epithel Cells (Auto) < 1.0 /HPF (0-13.0) 12/23/18 23:00
[2018-12-25] MEDS: LANTUS SUB-Q SCH (22:37)
[2018-12-26] MEDS: VANCOMYCIN/NS 1 GM/250 ML 1 GM/250 ML BAG IV SCH (04:45)
[2018-12-26] MEDS: NORCO 5/325 PO PRN ×2 (10:07→20:57)
[2018-12-26] MEDS: HumuLIN R SUB-Q SCH ×4 (10:07→21:36)
[2018-12-26] MEDS: LOVENOX SUB-Q SCH (10:07)
[2018-12-26] MEDS: NORVASC PO SCH (10:10)
[2018-12-26] MEDS: SODIUM CHLORIDE FLUSH SYRINGE 10 ML IV SCH ×2 (10:11→22:05)
--- NOTE | 2018-12-26 13:29 | Progress Note ---
Assessment and Plan Assessment and plan: Fall at home. PT to evaluate Diabetes mellitus type 2, uncontrolled Increase dosing, start iv fluids Multiple abrasions on legs wound care nurse Hypertensive urgency. Start Amlodipine, Hydralazine iv prn. Hold Lisinopril because of hyperkalemia Hyperkalemia, Resolved Depression. Consult Psych History Interval history: feels better less pain on extremities post fall no fever Hospitalist Physical - Physical exam Narrative exam: GEN: Not in acute distress, lying in bed HEENT: Normocephalic, atraumatic, Neck: supple, No JVD Lungs: Clear to auscultation bilaterally, no wheeze Heart:S1 and S2 regular, no murmurs, rubs or gallop, Abd:soft, non tender, non distended, normal bowel sounds Ext: Multiple abrasions lower ext from fall, swelling both feet, no cyanosis Neuro: Awake,alert, oriented x 3, No focal signs Psych:Depressed - Constitutional Vitals: Temp Pulse Resp BP Pulse Ox 97.8 F 89 16 160/97 99 12/26/18 04:12 12/26/18 11:00 12/26/18 04:12 12/26/18 09:29 12/26/18 09:29 General appearance: Present: no acute distress Results - Labs CBC & Chem 7: 12/25/18 11:10 12/25/18 11:10 Labs: Laboratory Last Values WBC 5.0 K/mm3 (4.5-11.0) 12/25/18 11:10 RBC 4.19 M/mm3 (3.65-5.03) 12/25/18 11:10 Hgb 11.8 gm/dl (11.8-15.2) 12/25/18 11:10 Hct 36.0 % (35.5-45.6) 12/25/18 11:10 MCV 86 fl (84-94) 12/25/18 11:10 MCH 28 pg (28-32) 12/25/18 11:10 MCHC 33 % (32-34) 12/25/18 11:10 RDW 14.2 % (13.2-15.2) 12/25/18 11:10 Plt Count 312 K/mm3 (140-440) 12/25/18 11:10 Lymph % (Auto) 45.4 % (13.4-35.0) H 12/23/18 20:45 [place] % (Auto) 12.4 % (0.0-7.3) H 12/23/18 20:45 Eos % (Auto) 2.9 % (0.0-4.3) 12/23/18 20:45 Baso % (Auto) 1.1 % (0.0-1.8) 12/23/18 20:45 Lymph # 1.8 K/mm3 (1.2-5.4) 12/23/18 20:45 [place] # 0.5 K/mm3 (0.0-0.8) 12/23/18 20:45 Eos # 0.1 K/mm3 (0.0-0.4) 12/23/18 20:45 Baso # 0.0 K/mm3 (0.0-0.1) 12/23/18 20:45 Seg Neutrophils % 38.2 % (40.0-70.0) L 12/23/18 20:45 Seg Neutrophils # 1.5 K/mm3 (1.8-7.7) L 12/23/18 20:45 ESR 57 mm/Hr (0-20) 12/23/18 Unknown VBG pH 7.388 (7.320-7.420) 12/23/18 20:45 Sodium 136 mmol/L (137-145) L 12/25/18 11:10 Potassium 4.4 mmol/L (3.6-5.0) 12/25/18 11:10 Chloride 99.0 mmol/L (98-107) 12/25/18 11:10 Carbon Dioxide 27 mmol/L (22-30) 12/25/18 11:10 Anion Gap 14 mmol/L 12/25/18 11:10 BUN 9 mg/dL (9-20) 12/25/18 11:10 Creatinine 0.6 mg/dL (0.8-1.5) L 12/25/18 11:10 Estimated GFR > 60 ml/min 12/25/18 11:10 BUN/Creatinine Ratio 15 % 12/25/18 11:10 Glucose 215 mg/dL (75-100) H 12/25/18 11:10 POC Glucose 80 (70-105) 12/26/18 09:31 Calcium 8.5 mg/dL (8.4-10.2) 12/25/18 11:10 Troponin T < 0.010 ng/mL (0.00-0.029) 12/23/18 20:51 Urine Color Straw (Yellow) 12/23/18 23:00 Urine Turbidity Clear (Clear) 12/23/18 23:00 Urine pH 6.0 (5.0-7.0) 12/23/18 23:00 Ur Specific [place] 1.022 (1.003-1.030) 12/23/18 23:00 Urine Protein <15 mg/dl mg/dL (Negative) 12/23/18 23:00 Urine Glucose (UA) >=500 mg/dL (Negative) 12/23/18 23:00 Urine Ketones Neg mg/dL (Negative) 12/23/18 23:00 Urine Blood Sm (Negative) 12/23/18 23:00 Urine Nitrite Neg (Negative) 12/23/18 23:00 Urine Bilirubin Neg (Negative) 12/23/18 23:00 Urine Urobilinogen < 2.0 mg/dL (<2.0) 12/23/18 23:00 Ur Leukocyte Esterase Neg (Negative) 12/23/18 23:00 Urine WBC (Auto) < 1.0 /HPF (0.0-6.0) 12/23/18 23:00 Urine RBC (Auto) 1.0 /HPF (0.0-6.0) 12/23/18 23:00 U Epithel Cells (Auto) < 1.0 /HPF (0-13.0) 12/23/18 23:00
--- NOTE | 2018-12-26 15:27 | Vascular Lab Report ---
FINAL REPORT EXAM: VL VENOUS DUPLEX LE BILAT HISTORY: swelling of feet COMPARISON: None. TECHNIQUE: Duplex Doppler ultrasound of the veins of the bilateral lower extremities was performed. FINDINGS: The veins of the bilateral lower extremities are patent, compressible, and demonstrate normal wavefor ms and augmentation. IMPRESSION: No evidence of deep venous thrombosis in the bilateral lower extremities.
--- NOTE | 2018-12-26 15:28 | Consultation ---
History of Present Illness - Reason for Consult Consult date: 12/26/18 Reason for consult: Initial Psychiatric Evaluation - Chief Complaint Chief complaint: " I'm not depressed." - History of Present Psychiatric Illness Patient is a 48 year old male who presented to the emergency room s/ p fall in driveway. Patient has a past medical history of back pain. Psychiatry was consulted for depression. Today the patient is calm and cooperative during the assessment. He states, " I'm not depressed. My ex-girlfriend say I'm angry." He states, " she's angry because I don't want to be with her anymore. She has a cocaine and alcohol problem. I have a low tolerance for bullshit. I wasn't built to be walked on." He is adamant that he is not depressed. He verbalizes " I don't have suicidal thoughts. I love myself and life too much." He denies anhedonia, poor sleep, poor appetite, and poor energy. Patient expressed that he is frustrated with his back pain but he is able to cope with the symptoms. Currently, patient is participating in physical therapy, which he feels will be therapeutic for his back pain. He denies SI/HI's, A/VH's, and delusions. Current Psychiatric Medications: Patient denies. Past Psychiatric History: No previous psychiatric diagnosis; no previous inpatient psychiatric hospitalizations; no outpatient psychiatrist; no previous suicide attempts. Past Psychiatric Medication Trials: Patient denies. History of Alcohol/ Drug Abuse: Patient denies. Trauma/Abuse History: Patient denies sexual, physical, and mental abuse. 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 Medications and Allergies Allergies Allergy/AdvReac Type Severity Reaction Status Date / Time No Known Allergies Allergy Unverified 01/11/17 18:04 Home Medications Medication Instructions Recorded Confirmed Last Taken Type Insulin Glargine [Lantus] 35 units SQ QHS #1 vial 01/11/17 12/24/18 Unknown Rx Insulin Lispro [HumaLOG VIAL] 0 units SQ AC #1 vial 01/11/17 12/24/18 Unknown Rx HYDROcodone/APAP 5-325 [[place] 1 each PO Q6HR PRN #10 tablet 04/16/17 12/24/18 Unknown Rx 5/325] Lisinopril [Prinivil] 10 mg PO DAILY 12/24/18 12/25/18 12/23/18 05:00 History Oxycodone HCl/Acetaminophen 1 each PO Q6HR PRN 12/24/18 12/24/18 Unknown History [Percocet 7.5/325 mg] Active Meds: Active Medications Acetaminophen (Tylenol) 650 mg PO Q4H PRN PRN Reason: Pain MILD(1-3)/Fever >100.5/ETIENNE Acetaminophen/Hydrocodone Bitart ([place] 5/325) 1 each PO Q6H PRN PRN Reason: Pain, Mild (1-3) Last Admin: 12/26/18 10:07 Dose: 1 each Documented by: Amlodipine Besylate (Norvasc) 10 mg PO QDAY [facility] Last Admin: 12/26/18 10:10 Dose: 10 mg Documented by: Dextrose (D50w (25gm) Syringe) 50 ml IV PRN PRN PRN Reason: Hypoglycemia Enoxaparin Sodium (Lovenox) 40 mg SUB-Q QAM [facility] Last Admin: 12/26/18 10:07 Dose: 40 mg Documented by: Hydralazine HCl (Apresoline) 10 mg IV Q4HR PRN PRN Reason: SBP>160 or DBP>110 Last Admin: 12/25/18 21:41 Dose: 10 mg Documented by: Sodium Chloride (Nacl 0.9% 1000 Ml) 1,000 mls @ 100 mls/hr IV DIRECT [facility] Last Admin: 12/25/18 14:41 Dose: 100 mls/hr Documented by: Insulin Glargine (Lantus) 40 units SUB-Q QHS [facility] Last Admin: 12/25/18 22:37 Dose: 40 units Documented by: Insulin Human Regular (Humulin R) 0 units SUB-Q [facility]; Protocol Last Admin: 12/26/18 13:02 Dose: Not Given Documented by: Insulin Human Regular (Humulin R) 0 units SUB-Q QHS [facility]; Protocol Last Admin: 12/25/18 22:38 Dose: 4 units Documented by: Nicotine (Habitrol) 14 mg TD QDAY [facility] Ondansetron HCl (Zofran) 4 mg IV Q8H PRN PRN Reason: Nausea And Vomiting Oxycodone/Acetaminophen (Percocet 5/325) 1 tab PO Q6H PRN PRN Reason: Pain, Moderate (4-6) Last Admin: 12/25/18 21:39 Dose: 1 tab Documented by: Sodium Chloride (Sodium Chloride Flush Syringe 10 Ml) 10 ml IV BID JULIO C Last Admin: 12/26/18 10:11 Dose: 10 ml Documented by: Sodium Chloride (Sodium Chloride Flush Syringe 10 Ml) 10 ml IV PRN PRN PRN Reason: LINE FLUSH Mental Status Exam - Vital signs Last Vital Signs Temp 97.8 F 12/26/18 04:12 Pulse 89 12/26/18 11:00 Resp 16 12/26/18 04:12 BP 160/97 12/26/18 09:29 Pulse Ox 99 12/26/18 09:29 - Exam Narrative exam: Mental Status Exam Appearance: calm Behavior: regular eye contact Speech: regular rate and tone Mood: " I'm okay" Affect: appropriate; congruent mood Thought Process: circumstantial Thought Content: denies SI/HI's, AVH's, and delusions Motor Activity: ambulatory Cognition: A/O x3 Insight: fair Judgment: fair Results Result Diagrams: 12/25/18 11:10 12/25/18 11:10 Abnormal lab results 12/25/18 12/25/18 Range/Units 17:07 20:55 POC Glucose 219 H 347 H (70-105) All other labs normal. Assessment and Plan Assessment and plan: Impression: NO PPHx. Today the patent is calm and cooperative during the assessment. The patient denies SI/HI's, A/VH's, and delusions. Recommendation/Plan: 1. Will reassess in 24 hours. 2. Gather collateral to determine proper disposition. 3. Discussed the benefits/risks of medication. Patient refuses medication at this time. He prefers talk therapy. Disposition: Will reassess in 24 hours. Will refer to outpatient therapist at the [facility] upon discharge. Will staff with Dr. Jason Foley.
[2018-12-26] MEDS: HABITROL TD SCH (15:35)
[2018-12-26] MEDS: PERCOCET 5/325 PO PRN (15:35)
[2018-12-26] MEDS: APRESOLINE PO SCH ×2 (18:08→21:35)
[2018-12-26] MEDS: LANTUS SUB-Q SCH (21:37)
[2018-12-27] MEDS: PERCOCET 5/325 PO PRN ×2 (01:08→19:19)
[2018-12-27] MEDS: APRESOLINE PO SCH ×4 (06:34→21:32)
[2018-12-27] MEDS: NORCO 5/325 PO PRN (08:30)
[2018-12-27] MEDS: LOVENOX SUB-Q SCH (10:06)
[2018-12-27] MEDS: SODIUM CHLORIDE FLUSH SYRINGE 10 ML IV SCH ×2 (10:06→21:33)
[2018-12-27] MEDS: NORVASC PO SCH (10:06)
[2018-12-27] MEDS: HABITROL TD SCH (10:06)
[2018-12-27] MEDS: HumuLIN R SUB-Q SCH ×4 (10:31→21:33)
[2018-12-27 10:48] LABS: Hematocrit 36.2 % (35.5-45.6); Mean Corpuscular HGB Conc 33 % (32-34); Mean Corpuscular Volume 87 fl (84-94); Platelet Count 309 K/mm3 (140-440); Red Blood Count 4.18 M/mm3 (3.65-5.03); Red Cell Distribution Width 14.2 % (13.2-15.2)
--- NOTE | 2018-12-27 12:29 | Progress Note ---
Subjective - Reason for Consult Consult date: 12/27/18 Reason for consult: Psychiatry Follow-up - Chief Complaint Chief complaint: "I am definitely not depressed" 8 year old male who presented to the emergency room s/ p fall in driveway. Today the patient is calm and cooperative during the assessment. He stated that he isn't depressed and denies being depressed in the past. He denies other mood do's when asked. He stated that he is having relationship issues with his significant other.He stated, "My relationship issues are my main concern." He stated that he would like to speak with a professional therapist or counselor when discharged. He denies SI/HI's and AVH's. Mental Status Exam - Vital signs Last Vital Signs Temp 98.4 F 12/27/18 08:27 Pulse 95 H 12/27/18 08:27 Resp 20 12/27/18 08:27 BP 161/101 12/27/18 10:06 Pulse Ox 100 12/27/18 08:27 - Exam Narrative exam: MSE: Appearance: calm, cooperative Behavior: regular eye contact Speech: regular rate and tone Mood: " I'm okay" Affect: congruent to mood Thought Process: linear Thought Content: denies SI/HI's and AVH's Motor Activity: ambulatory Cognition: A/O x3 Insight: appropriate Judgment: appropriate Assessment and Plan Impression: Family Dynamic issues with his significant other. Today the patent is calm and cooperative during the assessment. Recommendation/Plan: The patient would like to speak with a family therapist or counselor. Psy sign off. Dispo: The patient can follow up with [facility] for family therapy. Will staff with Dr. Torres.
--- NOTE | 2018-12-27 14:59 | Consultation ---
History of Present Illness - Reason for Consult Consult date: 12/27/18 Left Foot infection Requesting physician: MAXIMO ROB - History of Present Illness This patient is 48-year-old male with a past medical history of insulin- dependant diabetes, osteoarthiris, who presents to the ED on 12/23/18 with complaints of chest pain, uncontrolled glucose for the last week, worsening left foot pain and swelling since he sustained a fall on Monday. Upon further ev aluation patient states that his glucose has been elevated over 500 despite taking 8 untis of isulin for his sliding scale treatment. He also reports chills without fever.. On admission WBC 3.9, Creatinine 0.6, Temperature 98.7, HR 99, BP 165/106, Glucose 705, U/A not consistent with a UTI, Chest xray showed no consolidation, Left foot stated that The bones appear intact without fracture or dislocation. There are no signs of osteomyelitis. The joint spaces appear normal. The soft tissues are unremarkable Review of Systems: General: no fevers, chills no rigors HEENT: no new visual disturbance Respiratory: No cough, sputum, hemoptysis or shortness of breath Cardiovascular: No chest pain, syncope Gastrointestinal: No nausea, vomiting. Chronic diarrhea Genitourinary: No dysuria or hematuria Musculoskeletal: No new or worsening neck pain or back pain Neurologic: No headaches, seizures Hematologic: No easy bruising or bleeding Endocrine: No night sweats. acute weight loss + Skin: + ulceration dorsal left foot, right hand Psychiatric: No suicidal or homicidal ideation Past History Past Medical History: arthritis, diabetes, hypertension Past Surgical History: No surgical history Social history: no significant social history Family history: no significant family history Medications and Allergies Allergies Allergy/AdvReac Type Severity Reaction Status Date / Time No Known Allergies Allergy Unverified 01/11/17 18:04 Home Medications Medication Instructions Recorded Confirmed Last Taken Type Insulin Glargine [Lantus] 35 units SQ QHS #1 vial 01/11/17 12/24/18 Unknown Rx Insulin Lispro [HumaLOG VIAL] 0 units SQ AC #1 vial 01/11/17 12/24/18 Unknown Rx HYDROcodone/APAP 5-325 [[place] 1 each PO Q6HR PRN #10 tablet 04/16/17 12/24/18 Unknown Rx 5/325] Lisinopril [Prinivil] 10 mg PO DAILY 12/24/18 12/25/18 12/23/18 05:00 History Oxycodone HCl/Acetaminophen 1 each PO Q6HR PRN 12/24/18 12/24/18 Unknown History [Percocet 7.5/325 mg] Active Meds: Active Medications Acetaminophen (Tylenol) 650 mg PO Q4H PRN PRN Reason: Pain MILD(1-3)/Fever >100.5/ETIENNE Amlodipine Besylate (Norvasc) 10 mg PO QDAY [facility] Last Admin: 12/27/18 10:06 Dose: 10 mg Documented by: Dextrose (D50w (25gm) Syringe) 50 ml IV PRN PRN PRN Reason: Hypoglycemia Enoxaparin S[facility] ([facility]) [facility] Last Admin: 12/27/18 10:06 Dose: 40 mg Documented by: Hydralazine HCl (Apresoline) 10 mg IV Q4HR PRN PRN Reason: SBP>160 or DBP>110 Last Admin: 12/25/18 21:41 Dose: 10 mg Documented by: Hydralazine HCl (Apresoline) 50 mg PO Q8HR [facility] Last Admin: 12/27/18 14:18 Dose: 50 mg Documented by: Sodium Chloride (Nacl 0.9% 1000 Ml) 1,000 mls @ 100 mls/hr IV DIRECT [facility] Last Admin: 12/25/18 14:41 Dose: 100 mls/hr Documented by: Insulin Glargine (Lantus) 35 units SUB-Q QHS [facility] Last Admin: 12/26/18 21:37 Dose: 35 units Documented by: Insulin Human Regular (Humulin R) 0 units SUB-Q [facility]; Protocol Last Admin: 12/27/18 10:31 Dose: Not Given Documented by: Insulin Human Regular (Humulin R) 0 units SUB-Q QHS [facility]; Protocol Last Admin: 12/26/18 21:36 Dose: 5 units Documented by: Nicotine (Habitrol) 14 mg TD QDAY [facility] Last Admin: 12/27/18 10:06 Dose: 14 mg Documented by: Ondansetron HCl (Zofran) 4 mg IV Q8H PRN PRN Reason: Nausea And Vomiting Oxycodone/Acetaminophen (Percocet 5/325) 1 tab PO Q6H PRN PRN Reason: Pain, Moderate (4-6) Last Admin: 12/27/18 01:08 Dose: 1 tab Documented by: Sodium Chloride (Sodium Chloride Flush Syringe 10 Ml) 10 ml IV BID JULIO C Last Admin: 12/27/18 10:06 Dose: 10 ml Documented by: Sodium Chloride (Sodium Chloride Flush Syringe 10 Ml) 10 ml IV PRN PRN PRN Reason: LINE FLUSH Physical Examination - Physical Exam Narrative exam: Constitutional: Alert, cooperative. No acute distress Head, Ears, Nose: Normocephalic, atraumatic. External ears, nose normal Eyes: Conjunctivae/corneas clear. No icterus. No ptosis. Neck: Supple, no meningeal signs Oral: dentition goo, no thrush Cardiovascular: S1, S2 normal. Respiratory: Good air entry, clear to auscultation bilaterally GI: Soft, non-tender; bowel sounds normal. No peritoneal signs Musculoskeletal: No pedal edema, no cyanosis. Skin: +ulceration dorsal left foot with scab, +right 3rd finger ulceration, no drainage Hem/Lymphatic: No palpable cervical or supraclavicular nodes. No lymphangitis Psych: Mood ok. Affect normal Neurological: Awake, alert, oriented. G - Constitutional Vitals: Vital Signs Temp Pulse Resp BP Pulse Ox 98.4 F 95 H 20 170/118 100 12/27/18 08:27 12/27/18 08:27 12/27/18 08:27 12/27/18 14:18 12/27/18 08:27 Temperature -Last 24 Hours Temperature 98.4 F Temperature 98.0 F Temperature 98.0 F Temperature 99.2 F Results - Labs CBC & Chem 7: 12/27/18 10:28 12/25/18 11:10 Labs: Abnormal lab results 12/26/18 12/26/18 12/27/18 Range/Units 17:09 21:04 06:23 WBC (4.5-11.0) K/mm3 POC Glucose 223 H 401 H 164 H (70-105) 12/27/18 12/27/18 Range/Units 10:23 10:28 WBC 3.8 L (4.5-11.0) K/mm3 POC Glucose 128 H (70-105) Assessment and Plan Imaging 12/23/2018 Chest: No consolidation 12/23/2018 Left Foot:The bones appear intact without fracture or dislocation. There are no signs of osteomyelitis. The joint spaces appear normal. The soft tissues are unremarkable. Cultures: No cultures drawn A/P: 48-year-old man with a history of of insulin-dependant diabetes, osteoarthiris, admitted with: 1. Left foot diabetic ulcer: on exam, + left foot dorsal ulceration, closed, ho drainage or odor. Right 3rd finger ulceration, open, no drainage or odor. Xray of left foot showed bones intact, no osteomyelitis. 2. Type 2 diabetes: uncontrolled Plan: -Can discharge home, from ID standpoint, no antibiotics needed- F/u with outpatient if necessary d/w Dr. Jutsino Burnham, [facility] M: [phone] O:[phone].
[2018-12-27] MEDS ORDERED: APRESOLINE IV PRN (16:28)
--- NOTE | 2018-12-27 17:05 | Progress Note ---
Assessment and Plan Assessment and plan: Fall at home. Evaluated by PT For outpatient PT Diabetes mellitus type 2, uncontrolled Now improved blood glucose Multiple abrasions on legs wound care nurse Consulted ID Physician Hypertensive urgency. BP still uncontrolled Continue Amlodipine, Hydralazine iv prn. Hold Lisinopril because of hyperkalemia increase hydralazine to 100mg tid Hyperkalemia, Resolved Depression. Consulted Psych History Interval history: feels better less pain on extremities post fall no fever Hospitalist Physical - Physical exam Narrative exam: GEN: Not in acute distress, lying in bed HEENT: Normocephalic, atraumatic, Neck: supple, No JVD Lungs: Clear to auscultation bilaterally, no wheeze Heart:S1 and S2 regular, no murmurs, rubs or gallop, Abd:soft, non tender, non distended, normal bowel sounds Ext: Multiple abrasions lower ext from fall, swelling both feet, no cyanosis Neuro: Awake,alert, oriented x 3, No focal signs Psych:Depressed - Constitutional Vitals: Temp Pulse Resp BP Pulse Ox 98.4 F 95 H 20 160/106 100 12/27/18 08:27 12/27/18 08:27 12/27/18 08:27 12/27/18 16:49 12/27/18 08:27 General appearance: Present: no acute distress Results - Labs CBC & Chem 7: 12/27/18 10:28 12/25/18 11:10 Labs: Laboratory Last Values WBC 3.8 K/mm3 (4.5-11.0) L 12/27/18 10:28 RBC 4.18 M/mm3 (3.65-5.03) 12/27/18 10:28 Hgb 12.0 gm/dl (11.8-15.2) 12/27/18 10:28 Hct 36.2 % (35.5-45.6) 12/27/18 10:28 MCV 87 fl (84-94) 12/27/18 10:28 MCH 29 pg (28-32) 12/27/18 10:28 MCHC 33 % (32-34) 12/27/18 10:28 RDW 14.2 % (13.2-15.2) 12/27/18 10:28 Plt Count 309 K/mm3 (140-440) 12/27/18 10:28 Lymph % (Auto) 45.4 % (13.4-35.0) H 12/23/18 20:45 [place] % (Auto) 12.4 % (0.0-7.3) H 12/23/18 20:45 Eos % (Auto) 2.9 % (0.0-4.3) 12/23/18 20:45 Baso % (Auto) 1.1 % (0.0-1.8) 12/23/18 20:45 Lymph # 1.8 K/mm3 (1.2-5.4) 12/23/18 20:45 [place] # 0.5 K/mm3 (0.0-0.8) 12/23/18 20:45 Eos # 0.1 K/mm3 (0.0-0.4) 12/23/18 20:45 Baso # 0.0 K/mm3 (0.0-0.1) 12/23/18 20:45 Seg Neutrophils % 38.2 % (40.0-70.0) L 12/23/18 20:45 Seg Neutrophils # 1.5 K/mm3 (1.8-7.7) L 12/23/18 20:45 ESR 57 mm/Hr (0-20) 12/23/18 Unknown VBG pH 7.388 (7.320-7.420) 12/23/18 20:45 Sodium 136 mmol/L (137-145) L 12/25/18 11:10 Potassium 4.4 mmol/L (3.6-5.0) 12/25/18 11:10 Chloride 99.0 mmol/L (98-107) 12/25/18 11:10 Carbon Dioxide 27 mmol/L (22-30) 12/25/18 11:10 Anion Gap 14 mmol/L 12/25/18 11:10 BUN 9 mg/dL (9-20) 12/25/18 11:10 Creatinine 0.6 mg/dL (0.8-1.5) L 12/25/18 11:10 Estimated GFR > 60 ml/min 12/25/18 11:10 BUN/Creatinine Ratio 15 % 12/25/18 11:10 Glucose 215 mg/dL (75-100) H 12/25/18 11:10 POC Glucose 251 (70-105) H 12/27/18 15:51 Calcium 8.5 mg/dL (8.4-10.2) 12/25/18 11:10 Troponin T < 0.010 ng/mL (0.00-0.029) 12/23/18 20:51 Urine Color Straw (Yellow) 12/23/18 23:00 Urine Turbidity Clear (Clear) 12/23/18 23:00 Urine pH 6.0 (5.0-7.0) 12/23/18 23:00 Ur Specific [place] 1.022 (1.003-1.030) 12/23/18 23:00 Urine Protein <15 mg/dl mg/dL (Negative) 12/23/18 23:00 Urine Glucose (UA) >=500 mg/dL (Negative) 12/23/18 23:00 Urine Ketones Neg mg/dL (Negative) 12/23/18 23:00 Urine Blood Sm (Negative) 12/23/18 23:00 Urine Nitrite Neg (Negative) 12/23/18 23:00 Urine Bilirubin Neg (Negative) 12/23/18 23:00 Urine Urobilinogen < 2.0 mg/dL (<2.0) 12/23/18 23:00 Ur Leukocyte Esterase Neg (Negative) 12/23/18 23:00 Urine WBC (Auto) < 1.0 /HPF (0.0-6.0) 12/23/18 23:00 Urine RBC (Auto) 1.0 /HPF (0.0-6.0) 12/23/18 23:00 U Epithel Cells (Auto) < 1.0 /HPF (0-13.0) 12/23/18 23:00
[2018-12-27] MEDS: LANTUS SUB-Q SCH (21:32)
[2018-12-28] MEDS: APRESOLINE PO SCH ×2 (05:34→13:34)
[2018-12-28] MEDS: PERCOCET 5/325 PO PRN ×2 (05:35→13:33)
--- NOTE | 2018-12-28 07:22 | XRay Report ---
RIGHT HAND RADIOGRAPHS INDICATION: Fall, wound. COMPARISON: None similar. FINDINGS: AP, lateral and oblique right hand radiographs, 4 images demonstrate somewhat shortened and deformed fifth metacarpal and an adjacent 3 mm possible ossific density just medial to its neck/distal aspect on the frontal view. Mild overlying soft tissue swelling though not excluded. No focal suspicious erosions. Intact remainder bony articulation. Approximately 0.5 cm bony exostosis off the first metacarpal neck incidentally noted. CONCLUSION: 1. Right fifth metacarpal deformity and a small adjacent density, as detailed above, exact age indeterminate though presumed old. Subtle overlying soft tissue swelling however not excluded. Please also correlate clinically. 2. Few other incidental findings, as above. Thank you for the opportunity to participate in this patient's care.
[2018-12-28] MEDS ORDERED: NORVASC PO STA (08:05)
[2018-12-28] MEDS ORDERED: APRESOLINE PO STA (08:05)
[2018-12-28] MEDS: HumuLIN R SUB-Q SCH (09:03)
[2018-12-28] MEDS: LOVENOX SUB-Q SCH (09:05)
[2018-12-28] MEDS: HABITROL TD SCH (09:05)
--- NOTE | 2018-12-28 10:14 | Discharge Summary ---
Providers - Providers Date of Admission: 12/24/18 00:10 Date of discharge: 12/28/18 Attending physician: MAXIMO ROB 12/24/18 04:12 Consult to Wound/ET Nurse [CONS] Routine Reason For Exam: wound eval 12/25/18 09:17 Physical Therapy Evaluation and Treat [CONS] Routine Comment: Reason For Exam: PT- eval. gait and safety- patient with fall home 12/25/18 12:46 Consult to Mental Health [CONS] Routine Reason For Exam: Depression Place consult to:: Psych Notified:: mental health 12/27/18 08:37 Consult to Physician [CONS] Routine Comment: Consulting Provider: CALEB PINEDO Physician Instructions: Reason For Exam: left foot infection post fall Primary care physician: KRISTY MENDENHALL Hospitalization Condition: Fair Hospital course: Patient presented because of fall at home, had kneeabrasions. he was evaluated by ID Physician, also evaluated by Psych for depression Fall at home. Evaluated by PT For outpatient PT Diabetes mellitus type 2, uncontrolled Now improved blood glucose Multiple abrasions on legs wound care nurse Consulted ID Physician Hypertensive urgency. Improved after adjusting medications Hyperkalemia, Resolved Depression. he was evaluated by Psych Total time spent on discharge, 32 mins Disposition: - TO HOME OR SELFCARE - Discharge Diagnoses (1) Hypertensive urgency Status: Acute (2) Fall Status: Acute (3) Leg abrasion Status: Acute (4) Uncontrolled diabetes mellitus Status: Acute (5) SIRS (systemic inflammatory response syndrome) Status: Acute Core Measure Documentation - Palliative Care Palliative Care/ Comfort Measures: Not Applicable - Core Measures Any of the following diagnoses?: none Exam - Constitutional Vitals: Temp Pulse Resp BP Pulse Ox 97.4 F L 96 H 18 143/103 100 12/28/18 08:30 12/28/18 08:29 12/28/18 08:29 12/28/18 08:29 12/28/18 08:29 Plan Activity: advance as tolerated Diet: low fat, low cholesterol, low salt, diabetic Additional Instructions: 1.Follow up with PCP in 1 week Follow up with: KRISTY MENDENHALL MD [Primary Care Provider] - 7 Days Prescriptions: amLODIPine [Norvasc] 10 mg PO QDAY #30 tablet Hydralazine HCl 50 mg PO TID #90 tablet Insulin Glargine,Hum.rec.anlog [Lantus] 40 units SQ QHS #1 vial Nicotine [Habitrol] 14 mg TD DAILY #30 patch traMADol [Ultram 50 MG tab] 50 mg PO Q6HR PRN #12 tablet PRN Reason: Pain
[2018-12-28] MEDS: SODIUM CHLORIDE FLUSH SYRINGE 10 ML IV SCH (10:16)
[2018-12-28] MEDS: NORVASC PO SCH (10:17)
[2018-12-30 11:24] VITALS: BP 151/101
== END 2018-12-28 14:55 | disposition home or self-care (01) | DRG 304 ==
LOC: ED 20:06 → 4A 12-24 00:10
PROVIDERS: ADMIT Internal Medicine; ATTEND Internal Medicine
DX: I16.0 Hypertensive urgency (principal); E11.00 Type 2 diabetes mellitus with hyperosmolarity without nonketotic hyperglycemic-hyperosmolar coma (NKHHC); R65.10 Systemic inflammatory response syndrome (SIRS) of non-infectious origin without acute organ dysfunction; E87.5 Hyperkalemia; E11.621 Type 2 diabetes mellitus with foot ulcer; F17.200 Nicotine dependence, unspecified, uncomplicated; F32.9 Major depressive disorder, single episode, unspecified; S80.812A Abrasion, left lower leg, initial encounter; S80.811A Abrasion, right lower leg, initial encounter; F17.210 Nicotine dependence, cigarettes, uncomplicated; W17.89XA Other fall from one level to another, initial encounter; E11.65 Type 2 diabetes mellitus with hyperglycemia; L97.529 Non-pressure chronic ulcer of other part of left foot with unspecified severity; Z79.4 Long term (current) use of insulin; Y93.89 Activity, other specified; Y92.098 Other place in other non-institutional residence as the place of occurrence of the external cause; Y99.8 Other external cause status
CPT/HCPCS: 36415; 71046; 80048; 81001; 82805; 82962; 84484; 85025; 85027; 85652; 93005; 93010; 93970; 99406; G0378; J0360; J1650; J1815; J1885; J2405; J3370; J7030; J7040